=== PATIENT | male | born 1930 | race Hispanic/Latino ===

== ENCOUNTER 2018-02-07 07:26 | Observation (INO) | payer MEDICARE ==
--- NOTE | 2018-02-05 11:14 | Diagnostic Imaging Report ---
PROCEDURE: Frontal and lateral views of the chest. COMPARISON: None. INDICATIONS: PRE-OPERATIVE CHEST X-RAY FOR RETROGRADE PYELOGRAM FINDINGS: Lines/tubes: None. Lungs: The lungs are well inflated. Elevated left hemidiaphragm. Left base opacification. Pleura: There is no pleural effusion or pneumothorax. Heart and mediastinum: The heart and the mediastinum are normal. Aorta is calcified and tortuous. Bones: No acute bony abnormality. Degenerative changes of the thoracic spine. IMPRESSION: Elevated left hemidiaphragm. Left base opacification, representing atelectasis and/or pneumonia. Dictated by: Sanchez Lanier M.D. on 02/05/2018 at 11:16 Electronically approved by: Sanchez Lanier M.D. on 02/05/2018 at 11:16
[~2018-02-07] VITALS: Ht 175.3 cm; Wt 76.0 kg
[~2018-02-07 07:26] MED LIST: CEFTRIAXONE SOD 1 GM VIAL ONE; IPRATROPIU0.2 MG/1 M NEB; LANTUS 3ML100 UNITS/ SQ; OMEPRAZOLE40 MG PO; PENICILLIN; PHENAZOPYRIDIN100 MG PO; PLAVIX75 MG PO; PRAVASTATIN SOD40 MG PO
--- OUTSIDE RECORDS SUMMARY | 2018-02-07 07:28 | XMS REPORT ---
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 Allergies, Adverse Reactions, Alerts This patient has no known allergies or adverse reactions. Medications This patient has no known medications. Results Test Description Test Time Test Comments Text Results Atomic Results Result Comments CHEST 2 VIEWS [place] [address] Patient Name: CELINA QUISPE MR #: [id number] : 1930 Age/Sex: 87/M Req #: [id number] Adm Physician: Ordered by: ANGELINE URIARTE MD Report #: [id number] Location: OR Room/Bed: Procedure: [id number] DX/ CHEST 2 VIEWS Exam Date: 02/05/18 Exam Time: 1012 REPORT STATUS: Signed PROCEDURE: Frontal and lateral views of the chest. COMPARISON: None. INDICATIONS: PRE-OPERATIVE CHEST X-RAY FOR RETROGRADE PYELOGRAM FINDINGS: Lines/tubes: None. Lungs: The lungs are well inflated. Elevated left hemidiaphragm. Left base opacification. Pleura: There is no pleural effusion or pneumothorax. Heart and mediastinum: The heart and the mediastinum are normal. Aorta is calcified and tortuous. Bones: No acute bony abnormality. Degenerative changes of the thoracic spine. IMPRESSION: Elevated left hemidiaphragm. Left base opacification, representing atelectasis and/or pneumonia. Dictated by: Sanchez Oden M.D. on 2017 at 11:16 Electronically approved by: Sanchez Oden M.D. on 2017 at 11:16 Dictated By: SANCHEZ ODEN MD [id number] Transcribed By: BARB on 02/05/18 1116 COPY TO: ANGELINE URIARTE MD
[2018-02-07] MEDS ORDERED: AMPICILLIN SOD 1 GM/NS 50ML 50 ML IV NR (07:30)
[2018-02-07] MEDS ORDERED: BELLADONNA/OPIUM 60 MG SUPP PR ONE (09:28)
[2018-02-07] MEDS ORDERED: IOPAMIDOL 610MG/1ML 300 MG/ML VIAL IV ONE (09:28)
[2018-02-07] MEDS ORDERED: HYDRALAZINE HCL 20 MG/ML VIAL ONE (10:48)
[2018-02-07] MEDS ORDERED: ACETAMINOPHEN 1000 MG/100 ML 100 ML IV ONE (11:14)
[2018-02-07] MEDS ORDERED: LIDOCAINE HCL 2% LOCAL INJ 5 ML SDV VIAL INJ ONE (17:10)
[2018-02-07] MEDS ORDERED: SEVOFLURANE INHAL SOLN 250 ML PEN BTL ONE (17:10)
[2018-02-07] MEDS ORDERED: ONDANSETRON HCL INJ 2 MG/ML VIAL ONE (17:10)
[2018-02-07] MEDS ORDERED: PROPOFOL IV EMULSION 10 MG/ML 20 ML VIAL ONE (17:10)
[2018-02-07] MEDS ORDERED: DEXAMETHASONE SOD PHOS INJ 4 MG/ML VIAL ONE (17:10)
[2018-02-07 17:36] VITALS: BP 147/66
[2018-02-07 17:38] VITALS: BP 147/66
[2018-02-07 19:53] LABS: CREATINE KINASE MB 2.3 ng/mL (0-5.0)
[2018-02-07 20:00] VITALS: BP 140/65
[2018-02-07] MEDS ORDERED: METOPROLOL SUCCINATE 25 MG TAB XL PO SCH (20:15)
[2018-02-07] MEDS: PHENAZOPYRIDINE HCL 100 MG TAB PO SCH (20:44)
[2018-02-07 21:00] VITALS: BP 140/65
[2018-02-07] MEDS ORDERED: PRAVASTATIN 20 MG TAB PO SCH (21:00)
[2018-02-07] MEDS ORDERED: NON-FORMULARY MEDICATION (Pravastatin Sodium 40 MG) PO SCH (21:00)
[2018-02-07] MEDS ORDERED: INSULIN DETEMIR 100 UNIT/ML PEN SQ SCH (21:00)
[2018-02-08] VITALS: BP 133/69
--- NOTE | 2018-02-08 01:03 | Consultation ---
DATE OF CONSULTATION: February 07, 2018 REFERRING PHYSICIAN: Dr. Daryn Connors CHIEF COMPLAINT: PVCs. HISTORY OF PRESENT ILLNESS: Mr. Nuno is an 87-year-old pleasant gentleman with a past medical history significant for hypertension, reported history of lung cancer, status post radiation therapy, deconditioning. Urologic procedure today by Dr. Hsu. Postoperatively, he was noted to have episodes of PVCs in a bigeminy pattern. He denies any chest pain or shortness of breath. He denies any lightheadedness presyncope or syncope currently or in the past. His telemetry has demonstrated over the following ensuing hours improvement in ectopy, most recently with normal sinus rhythm. Serial cardiac biomarkers have been drawn and negative. His echocardiogram was reviewed with normal regional wall motion preserved left ventricular systolic function. No significant valvular abnormalities. No significant LVH. Age appropriate diastolic function. REVIEW OF SYSTEMS: Twelve systems reviewed, negative except for as noted above. PAST MEDICAL HISTORY: As per HPI. ALLERGIES: NO KNOWN DRUG ALLERGIES. SOCIAL HISTORY: A former smoker. No alcohol or drugs. FAMILY HISTORY: Noncontributory. PHYSICAL EXAMINATION VITAL SIGNS: Temperature 98.4, pulse to my exam 65, respiratory rate 14, blood pressure 147/66, O2 sat 97% on room air. GENERAL: In no acute distress, alert. NECK: No JVD. CHEST: Clear to auscultation. CARDIOVASCULAR: Regular rate and rhythm. Normal S1 and S2. No S3, no S4, no murmurs, no rubs. ABDOMEN: Soft and nontender, nondistended. EXTREMITIES: No cyanosis, clubbing or edema. EKG, echo and outpatient labs reviewed as well as serial cardiac enzymes reviewed. Telemetry reviewed. ASSESSMENT 1. Bigeminy PVCs postoperatively, otherwise asymptomatic, and with improvement of ectopy over the most recent hours. 2. History of hypertension. 3. History of lung cancer, status post radiation therapy reported. 4. Status post urologic assessment by Dr. Hsu. RECOMMENDATIONS: 1. Initiate low-dose beta kala and assess for ectopy while under observation. 2. The patient states he follows up with outpatient oven dumper, Dr. Ian Rene. Have advised close followup within one to two weeks post discharge with his outpatient oven dumper. 3. Outpatient consideration for stress test and Holter monitor have been discussed with the patient as well as multiple family members who were in the room. 4. Alarm signs to proceed to ER or call 9-1-1 have also been discussed. Thank you for the opportunity for participating in the care of Mr. Marcus Nuno. Second set of enzymes negative, okay to discharge with low-dose beta kala and outpatient followup as described. Job#: [id number] GH
[2018-02-08 04:00] VITALS: BP 110/59
[2018-02-08 07:09] LABS: BASOPHILS % 0.4 % (0.0-1.0); EOSINOPHILS # (AUTO) 0.2 (0.0-0.4); EOSINOPHILS % 2.6 % (0.0-6.0); HEMATOCRIT 33.5 % (38.2-49.6); LYMPHOCYTES # (AUTO) 0.6 (1.0-3.2); LYMPHOCYTES % 6.9 % (18.0-39.1); MEAN CORPUSCULAR HGB CONC 32.8 g/dL (31-35); MEAN CORPUSCULAR VOLUME 94.4 fL (81-99); MONOCYTES # (AUTO) 0.7 (0.2-0.8); MONOCYTES % 8.4 % (4.4-11.3); NEUTROPHILS # (AUTO) 6.9 (2.1-6.9); PLATELET COUNT 235 x10e3/uL (140-360); RED BLOOD COUNT 3.55 x10e6/uL (4.3-5.7)
[2018-02-08 07:24] VITALS: BP 141/69
[2018-02-08 07:29] LABS: CREATINE KINASE 50 IU/L (30-200)
[2018-02-08 07:59] LABS: ANION GAP 13.3 mmol/L (8-16); BLOOD UREA NITROGEN 15 mg/dL (7-26); BUN/CREATININE RATIO 18 (6-25); CALCIUM 8.9 mg/dL (8.4-10.2); CARBON DIOXIDE 26 mmol/L (22-29); CHLORIDE 102 mmol/L (98-107); CREATININE, SERUM 0.85 mg/dL (0.72-1.25); EST GLOMERULAR FILTRATION RATE > 60 ML/MIN (60-); GLUCOSE 119 mg/dL (74-118); POTASSIUM 4.3 mmol/L (3.5-5.1); SODIUM 137 mmol/L (136-145)
[2018-02-08] MEDS ORDERED: TYLENOL WITH C1 EACH PO (08:11)
[2018-02-08] MEDS ORDERED: PYRIDIUM100 MG PO (08:13)
[2018-02-08] MEDS: PHENAZOPYRIDINE HCL 100 MG TAB PO SCH (08:20)
[2018-02-08] MEDS ORDERED: PANTOPRAZOLE SOD 40 MG TABEC PO SCH (09:00)
--- NOTE | 2018-02-08 12:36 | Discharge Summary ---
VETERINARY RADIOLOGIST: Dr. Barber and Dr. Charles Hsu. FINAL DIAGNOSES 1. Status post transurethral cystoscopy with removal of urinary bladder tumor. 2. Urinary bladder cancer. SUMMARY: Patient is an 87-year-old male status post urological procedure done by Dr. Charles Hsu. The patient had urinary bladder tumor removal. The patient is stable at this time. He will go home with a Hinds catheter. The patient is otherwise stable. No complication. He did have some SVT but otherwise unremarkable. Dr. Barber has cleared the patient for discharge. 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 Jamil as an outpatient. Patient discharged home today. Resume home medications. Job#: [id number] RASHIDA
--- NOTE | 2018-03-17 22:32 | Operative Report ---
DATE OF PROCEDURE: February 07, 2018 PREOPERATIVE DIAGNOSES 1. 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 2. Urinary tract infections. 3. Urethral stricture disease. POSTOPERATIVE DIAGNOSES 1. 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 2. Urinary tract infections. 3. Urethral stricture disease. OPERATIONS PERFORMED 1. Cystourethroscopy with calibration and dilation of urethral strictures (separate procedure performed for diagnosis of strictures). 2. Cystourethroscopy with left ureteral catheterization and retrograde ureteropyelography (separate procedure performed to evaluate the upper tracts in light of the urinary tract infections). 3. Interpretation of retrograde ureteropyelography. 4. Cystourethroscopy with transurethral resection and vaporization of bladder tumors from the bladder neck and prostate bed measuring over 2.5 cm in size. ANESTHESIA: General. COMPLICATION: None. CLINICAL SUMMARY: Marcus Nuno is an 87-year-old man with the complex urological history. He has undergone a right nephroureterectomy for transitional cell carcinoma. He has had recurrent bladder cancers. He has also had transurethral resection of prostate and also has prostate cancer. He has had recurrent difficulty to treat urethral stricture disease. He has recurrent cancer and is brought for resection. He is aware of the risks of bleeding, infection, injury to adjacent structures, need for additional procedures, and elected to proceed. OPERATIVE PROCEDURE IN DETAIL: Informed consent was verified. Marcus Nuno was properly identified, taken to operating room, placed on the cystoscopy table in supine position. Anesthesia was uneventfully begun. The 22.5-Bulgarian cystoscope sheath with visual obturator in place was atraumatically inserted in patient's distal urethra. Just proximal to the fossa navicularis, there started to be the appearance of steinberg urethral stricture disease. Guidewire was then placed and then we proceeded with dilating across these strictures. As we dilated across the steinberg urethral strictures, we did not visualize any recurrent urethral urothelial cancer. We passed the sphincteric region into the prostate bed, where there was a recurrent bladder cancer that was noted in the left side of the proximal prostatic urethra and also in the bladder neck. Panendoscopy of the bladder revealed no additional tumors. Normally positioned and configured left ureteral orifice was identified. The right ureteral orifice was resected with prior nephroureterectomy. A ureteral catheter was used to cannulate the left ureter and retrograde ureteropyelography was performed. Interpretation of retrograde ureteropyelography: Contrast was instilled in retrograde fashion in left hand side. There was some J-hooking noted. There was some ureteral stricturing noted. There is no hydronephrosis. No obstruction. No filling defects. Unobstructed drainage was observed fluoroscopically. We utilized the cold-cup biopsy forceps to progressively resect all visible bladder cancer. We then utilized a Bugbee electrode to fulgurate. No additional remaining cancer could be visualized. The cystoscope was withdrawn. The Hinds catheter was placed. It was irrigated to and fro and it sure worked properly. Belladonna and opium suppository was placed and the patient was uneventfully reversed from anesthesia and taken to recovery room in stable condition. There were no complications of the procedure. He tolerated the procedure well. Will proceed with ongoing urological followup and careful surveillance. Job#: [id number] CQ
== END 2018-02-08 08:53 | disposition home or self-care (01) ==
LOC: OR 07:26 → IMCU 16:49
PROVIDERS: ADMIT Internal Medicine; ATTEND Internal Medicine
DX: C67.5 Malignant neoplasm of bladder neck (principal); C61 Malignant neoplasm of prostate; I10 Essential (primary) hypertension; I97.89 Other postprocedural complications and disorders of the circulatory system, not elsewhere classified; I49.3 Ventricular premature depolarization; Z85.118 Personal history of other malignant neoplasm of bronchus and lung; Z79.4 Long term (current) use of insulin; E78.5 Hyperlipidemia, unspecified; R31.9 Hematuria, unspecified; Z87.440 Personal history of urinary (tract) infections; E11.9 Type 2 diabetes mellitus without complications
CPT/HCPCS: 36415 ×2; 52500; 52648; 71046; 74420; 80048; 82550 ×2; 82553 ×2; 82948 ×2; 84484 ×2; 85025; 87086; 87186; 88307; 93005; 93306; C1758; G0378 ×2; J0290; J0360; J0696; J1100; J2001; J2405; Q9967; S0164; 88305

== ENCOUNTER → 2018-06-01 | Day surgery (SDC) | payer MEDICARE ==
[2018-05-30 15:29] LABS: BASOPHILS % 0.5 % (0.0-1.0); EOSINOPHILS # (AUTO) 0.3 (0.0-0.4); EOSINOPHILS % 3.8 % (0.0-6.0); HEMOGLOBIN 11.9 g/dL (14.0-18.0); LYMPHOCYTES # (AUTO) 1.4 (1.0-3.2); LYMPHOCYTES % 17.6 % (18.0-39.1); MEAN CORPUSCULAR HEMOGLOBIN 30.7 pg (28-32); MEAN CORPUSCULAR HGB CONC 32.2 g/dL (31-35); MEAN CORPUSCULAR VOLUME 95.6 fL (81-99); MONOCYTES # (AUTO) 0.9 (0.2-0.8); NEUTROPHILS % 65.7 % (38.7-80.0); PLATELET COUNT 220 x10e3/uL (140-360); RED BLOOD COUNT 3.87 x10e6/uL (4.3-5.7)
[2018-05-30 15:45] LABS: ANION GAP 12.4 mmol/L (8-16); BLOOD UREA NITROGEN 18 mg/dL (7-26); BUN/CREATININE RATIO 17 (6-25); CALCIUM 9.2 mg/dL (8.4-10.2); CARBON DIOXIDE 27 mmol/L (22-29); CHLORIDE 98 mmol/L (98-107); CREATININE, SERUM 1.06 mg/dL (0.72-1.25); EST GLOMERULAR FILTRATION RATE > 60 ML/MIN (60-); GLUCOSE 101 mg/dL (74-118); POTASSIUM 4.4 mmol/L (3.5-5.1); SODIUM 133 mmol/L (136-145)
[~2018-06-01] MED LIST changes: -CEFTRIAXONE SOD 1 GM VIAL ONE; +COMBIVENT RESPIM4 GM; +EPHEDRINE SULFATE INJ 50 MG/10 ML SYR ONE; +FENTANYL CITRATE/PF 100MCG/2 ML INJ ONE; +FLUTICASONE PO; +HYDRALAZINE HCL 20 MG/ML VIAL ONE; +IOPAMIDOL 300MG/ML 50ML INFUS..BTL IV ONE; +LIDOCAINE HCL 2% LOCAL INJ 5 ML SDV VIAL INJ ONE; +METOPROLOL TART25 MG PO; +ONDANSETRON HCL INJ 2 MG/ML VIAL ONE; +PROPOFOL IV EMULSION 10 MG/ML 20 ML VIAL ONE; +PYRIDIUM100 MG PO; +RANITIDINE HCL300 M1 PO; +SEVOFLURANE INHAL SOLN 250 ML PEN BTL ONE; +TYLENOL WITH C1 EACH PO; +VANCOMYCIN 1GM/NS 250 ML 250 ML ONE
--- NOTE | 2018-06-01 15:02 | Diagnostic Imaging Report ---
Retrograde urography CPT code: 62550 History: Recurrent bladder cancer Comparison: None Technique: Fluoroscopic guidance was provided to Dr. Charles Hsu for the purposes of a retrograde urogram. RADIATION DOSE: Fluoroscopy Time: 00:10 seconds Dose (Kerma) Area Product: 112.28 cGycm2 Air Kerma (AK) value (6.91 mGy) has been reviewed. It is below the limits set by the Radiation Protocol Committee (RPC) committee. Findings: Contrast is injected into the left ureter. There is no evidence of hydronephrosis or intraluminal filling defect. No strictures. Contrast fills the left renal collecting system. There is no dilatation. The calyces are mildly blunted. This may be due to underdistention. IMPRESSION: Mild blunting of the left renal calyces may be from underdistention of the collecting system. Please correlate with findings at time of exam. Signed by: Dr. Kirk Ashraf MD on 06/01/2018 2:58 PM
[2018-06-01 16:45] VITALS: BP 169/85
--- OUTSIDE RECORDS SUMMARY | 2018-06-21 08:04 | XMS REPORT | Continuity of Care Document ---
Author Author [facility] Organization [facility] Address [address] [place] [address] Phone Unavailable Care Team Providers Care Microarray Operations Vice President Name Role Phone NONSTAFF PCP Unavailable Insurance Providers Guarantor Marcus Nuno Address [address] [place] [address] Email [email or web address] Payer [facility] Policy Number [id number] Subscriber's Name Marcus Nuno Relationship 18 Self / Same As Patient Group Name RETIRED Effective Date 17 Payer Medicare A & B Policy Number [id number] Subscriber's Name Marcus Nuno Relationship 18 Self / Same As Patient Group Name RETIRED Advance Directives Directive Response Recorded Date/Time Does the patient have an advance directive? No 02/07/18 5:47pm If yes, is advance directive on file with [facility]? No 12/11/09 11:39am If not on file with [facility] will patient provide a copy? No 09/29/11 10:24am Do you have a Directive to Physician? No 02/05/18 9:13am Do you have a Medical Power of Dairy Worker? No 02/05/18 9:13am Do you have an out of hospital Do Not Resuscitate Order? No 02/05/18 9:13am Do you have any special needs we should be aware of? No 02/05/18 9:13am Do you have a support person here with you today? Yes 02/05/18 9:17am Did patient receive Notice of Privacy Practices? Yes 02/05/18 9:13am Did patient receive patient rights and responsibilities? Yes 02/05/18 9:13am Problems No problem information available. Medications Current Home Medications Medication Dose Units Route Directions Days Qty Instructions Start Date Acetaminophen With Codeine (Tylenol With Codeine #3 Tablet) 1 Each Tablet 300 Mg Oral Every 4 Hours as needed for Pain Clopidogrel Bisulfate (Plavix) 75 Mg Tablet 75 Mg Oral Daily 30 Tab Insulin Glargine (Lantus 3ML Pen) 100 Units/1 Ml Inj 15 Units Sub-Q Bedtime Ipratropium [place] 0.2 Mg/1 Ml Solution 0.06 % Nebullizer Omeprazole 40 Mg Capsule.dr 20 Mg Oral Daily Penicillin 500 Mg Phenazopyridine Hcl 100 Mg Tablet 200 Mg Oral Three Times A Day Phenazopyridine Hcl (Pyridium) 100 Mg Tablet 200 Mg Oral Three Times A Day Pravastatin Sodium 40 Mg Tablet 40 Mg Oral Bedtime Social History Social History Problem Response Recorded Date/Time Onset Date Status Hx Psychiatric Problems No 02/07/2018 5:47pm Not Applicable Not Applicable Hx Eating Disorder No 02/07/2018 5:47pm Not Applicable Not Applicable Hx Substance Use Disorder No 02/07/2018 5:47pm Not Applicable Not Applicable Hx Depression No 02/07/2018 5:47pm Not Applicable Not Applicable Hx Alcohol Use No 02/07/2018 5:47pm Not Applicable Not Applicable Hx Substance Use Treatment No 02/07/2018 5:47pm Not Applicable Not Applicable Hx Physical Abuse No 02/07/2018 5:47pm Not Applicable Not Applicable Smoking Status Start Date Stop Date Former smoker Hospital Discharge Instructions No hospital discharge instruction information available. Plan of Care Discharge Date 02/08/18 8:53am Disposition HOME, SELF-CARE Instructions/Education Provided Rodriguez Catheter Care Prescriptions See Medication Section Additional Instructions/Education f/u with Dr. Hsu in 2 weeks to remove rodriguez Functional Status Query Response Date Recorded Ambulation Ability Independent February 07, 2018 5:38pm Toileting Ability Independent February 07, 2018 5:38pm Allergies, Adverse Reactions, Alerts No known allergies. Immunizations No immunization information available. Vital Signs Acute Vital Signs Vital Response Date/Time Temperature (Fahrenheit) 98.6 degrees F (97.6 - 99.5) 02/08/2018 7:24am Pulse Pulse Rate (adult) 61 bpm (60 - 90) 02/08/2018 7:24am Respiratory Rate 20 bpm (12 - 24) 02/08/2018 7:24am Blood Pressure 141/69 mm Hg 02/08/2018 7:24am Height 5 ft 9 in 02/07/2018 5:36pm Weight 167.50 lb 02/08/2018 12:50am Body Mass Index 24.7 kg/m^2 02/08/2018 12:50am Results Laboratory Results Test Name Result Units Flags Reference Collection Date/Time Result Date/ Time Comments White Blood Count 8.45 x10e3/uL 4.8-10.8 02/08/2018 6:0502/08/2018 7 :10am Red Blood Count 3.55 x10e6/uL L 4.3-5.7 02/08/2018 6:0502/08/2018 7: 10am Hemoglobin 11.0 g/dL L 14.0-18.0 02/08/2018 6:0502/08/2018 7:10am Hematocrit 33.5 % L 38.2-49.6 02/08/2018 6:0502/08/2018 7:10am Mean Corpuscular Volume 94.4 fL 81-99 02/08/2018 6:0502/08/2018 7: 10am Mean Corpuscular Hemoglobin 31.0 pg 28-32 02/08/2018 6:0502/08/2018 7:10am Mean Corpuscular Hemoglobin Concent 32.8 g/dL 31-35 02/08/2018 6:0502/08/2018 7:10am Red Cell Distribution Width 13.0 % 11.7-14.4 02/08/2018 6:052017 7:10am Platelet Count 235 x10e3/uL 140-360 02/08/2018 6:0502/08/2018 7: 10am Neutrophils (%) (Auto) 81.0 % H 38.7-80.0 02/08/2018 6:0502/08/2018 7 :10am Lymphocytes (%) (Auto) 6.9 % L 18.0-39.1 02/08/2018 6:0502/08/2018 7: 10am Monocytes (%) (Auto) 8.4 % 4.4-11.3 02/08/2018 6:0502/08/2018 7: 10am Eosinophils (%) (Auto) 2.6 % 0.0-6.0 02/08/2018 6:0502/08/2018 7: 10am Basophils (%) (Auto) 0.4 % 0.0-1.0 02/08/2018 6:0502/08/2018 7:10am IM GRANULOCYTES % 0.7 % 0.0-1.0 02/08/2018 6:0502/08/2018 7:10am Neutrophils # (Auto) 6.9 2.1-6.9 02/08/2018 6:0502/08/2018 7:10am Lymphocytes # (Auto) 0.6 L 1.0-3.2 02/08/2018 6:0502/08/2018 7: 10am Monocytes # (Auto) 0.7 0.2-0.8 02/08/2018 6:0502/08/2018 7:10am Eosinophils # (Auto) 0.2 0.0-0.4 02/08/2018 6:0502/08/2018 7:10am Basophils # (Auto) 0.0 0.0-0.1 02/08/2018 6:0502/08/2018 7:10am Absolute Immature Granulocyte (auto 0.06 x10e3/uL 0-0.1 02/08/2018 6: 0502/08/2018 7:10am Sodium Level 137 mmol/L 136-145 02/08/2018 6:0502/08/2018 8:00am Potassium Level 4.3 mmol/L 3.5-5.1 02/08/2018 6:0502/08/2018 8:00am Chloride Level 102 mmol/L 98-107 02/08/2018 6:0502/08/2018 8:00am Carbon Dioxide Level 26 mmol/L -02/08/2018 6:0502/08/2018 8: 00am Anion Gap 13.3 mmol/L 8-02/08/2018 6:0502/08/2018 8:00am Blood Urea Nitrogen 15 mg/dL 04-1202/08/2018 6:05am 02/08/2018 8:00am Creatinine 0.85 mg/dL 0.72-1.25 02/08/2018 6:05am 02/08/2018 8:00am BUN/Creatinine Ratio 18 6-25 02/08/2018 6:05am 02/08/2018 8:00am Estimat Glomerular Filtration Rate > 60 ML/MIN 60- 02/08/2018 6:05am 8:00am Ranges were taken from the National Kidney Disease Education Program and the National Kidney Foundation literature. Reference ranges: 60 or greater: Normal 16-59 (for 3 consecutive months): Chronic kidney disease 15 or less: Kidney failure Glucose Level 119 mg/dL H 74-118 02/08/2018 6:05am 02/08/2018 8:00am Calcium Level 8.9 mg/dL 8.4-10.2 02/08/2018 6:05am 02/08/2018 8:00am Bedside Glucose 117 mg/dL 70-120 02/08/2018 6:56am 02/08/2018 7:19am Meter ID: [id number] Creatine Kinase 50 IU/L 30-200 02/08/2018 6:05am 02/08/2018 7:29am Creatine Kinase MB 1.40 ng/mL 0-5.0 02/08/2018 6:05am 02/08/2018 7: 40am Troponin I < 0.001 ng/mL 0-0.300 02/08/2018 6:05am 02/08/2018 7:40am Procedures Procedure Status Date Provider(s) Transurethral resection of bladder tumor (TURBT) with cystoscopy Completed ANGELINE HSU MD X-ray of chest, two views Active 02/05/18 ANGELINE HSU MD Encounters Encounter Location Arrival/Admit Date Discharge/Depart Date Attending Provider Discharged Inpatient (obs) [facility] 02/07/18 4:49pm 8:53am CHIP SOTO MD
--- NOTE | 2018-07-30 01:34 | Operative Report ---
DATE OF PROCEDURE: June 01, 2018 PREOPERATIVE DIAGNOSES: 1. Urethral stricture disease. 2. Recurrent bladder cancer throughout the prostate bed as well as bladder neck region encompassing well over 5 cm maximal diameter of recurrent bladder cancer. 3. Chronic renal insufficiency. POSTOPERATIVE DIAGNOSES: 1. Urethral stricture disease. 2. Recurrent bladder cancer throughout the prostate bed as well as bladder neck region encompassing well over 5 cm maximal diameter of recurrent bladder cancer. 3. Chronic renal insufficiency. OPERATIONS PERFORMED: 1. Cystourethroscopy with calibration and dilation of urethral stricture disease (separate procedure performed for diagnosis of stricture). 2. Cystourethroscopy with left ureteral catheterization and retrograde ureteropyelography (separate procedure performed to evaluate the upper tract of the patient's solitary kidney in light of the renal insufficiency). 3. Interpretation of retrograde ureteropyelography. 4. Cystourethroscopy with transurethral treatment of large bladder tumor (separate procedure performed for diagnosis of the tumor). ANESTHESIA: General. COMPLICATIONS: None. 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 The patient previously has had a right nephroureterectomy for transitional cell carcinoma. He eventually changed urologist and has been under my care for quite sometime. He has had transitional cell carcinoma of his urethra as well as of his bladder on numerous occasions. The patient has had multiple courses of BCG. He has metastatic disease that has been treated as well. The patient is brought to the operating room to resolve and treat recurrent transitional cell carcinoma from his lower urinary tract. We understand that we will not be curing this patient bladder cancer, however, doing our best to palliate his condition and avoid him episodes of hematuria, discomfort, and urinary retention. He is aware of the risks of bleeding, infection, injury to adjacent structures, the non-curative nature of today's procedures, and he elected to proceed. OPERATIVE PROCEDURE IN DETAIL: Informed consent was verified. Marcus Nuno was properly identified, taken to operating room, and placed on the cystoscopy table in supine position. Anesthesia was uneventfully begun. The patient was then carefully and gently repositioned in the dorsal lithotomy position with all pressure points well padded. His genitalia were prepared and draped in usual sterile fashion. The 22.5-Telugu cystoscope sheath with the visual obturator in place was atraumatically inserted into the patient's urethra. Most of the urethra was severely blanched from chronic stricture disease. We dilated across the strictures utilizing the visual obturator and the cystoscope sheath. We were able to negotiate the cystoscope to the sphincteric region, which was normal, and through the prostate bed, which exhibited recurrent transitional cell carcinoma diffusely. Panendoscopy of the urinary bladder revealed numerous scars from prior tumor treatments. An 8-Telugu catheter was used to cannulate the left ureter, and retrograde ureteral pyelograms were performed. Interpretation of retrograde ureteropyelography: Contrast was instilled in retrograde fashion bilaterally. There was no true hydronephrosis. The calices were and were sharp. The patient has a capacious renal pelvis. Unobstructed drainage was observed fluoroscopically. There were no suspicious lesions in the upper tract. Bugbee electrode was then utilized to vaporize on the cutting current and coagulate on the coagulation current all visible tumor from the prostate bed and bladder neck region. This resulted in complete ablation of all tumor that is visible as well as excellent hemostasis. The cystoscope was withdrawn. A Hinds catheter was placed. It was irrigated to and fro to ensure it worked properly, and the patient was uneventfully reversed from anesthesia and taken to recovery room in stable condition. Explicit postoperative instructions were given. Will follow the patient up in the office. Job#: [id number]
== END | disposition home or self-care (01) ==
LOC: OR 11:45
PROVIDERS: ATTEND Urology
DX: C67.9 Malignant neoplasm of bladder, unspecified (principal); C68.0 Malignant neoplasm of urethra; C34.91 Malignant neoplasm of unspecified part of right bronchus or lung; N35.9 Urethral stricture, unspecified; E11.22 Type 2 diabetes mellitus with diabetic chronic kidney disease; I12.9 Hypertensive chronic kidney disease with stage 1 through stage 4 chronic kidney disease, or unspecified chronic kidney disease; N18.9 Chronic kidney disease, unspecified; Z90.5 Acquired absence of kidney; J44.9 Chronic obstructive pulmonary disease, unspecified; E78.5 Hyperlipidemia, unspecified; I25.10 Atherosclerotic heart disease of native coronary artery without angina pectoris; Z01.810 Encounter for preprocedural cardiovascular examination; Z01.812 Encounter for preprocedural laboratory examination; Z79.4 Long term (current) use of insulin; Z86.73 Personal history of transient ischemic attack (TIA), and cerebral infarction without residual deficits; Z85.820 Personal history of malignant melanoma of skin; Z92.3 Personal history of irradiation
CPT/HCPCS: 36415 ×2; 52005; 52240; 74420; 80048; 82948; 85025; 93005; C1758; J0360; J2001; J2405; J3370; Q9967

== ENCOUNTER → 2018-09-01 | Day surgery (SDC) | payer MEDICARE ==
[2018-08-30 14:34] LABS: BASOPHILS % 0.3 % (0.0-1.0); EOSINOPHILS # (AUTO) 0.3 (0.0-0.4); EOSINOPHILS % 2.9 % (0.0-6.0); HEMATOCRIT 36.1 % (38.2-49.6); HEMOGLOBIN 11.5 g/dL (14.0-18.0); LYMPHOCYTES # (AUTO) 1.6 (1.0-3.2); LYMPHOCYTES % 18.4 % (18.0-39.1); MEAN CORPUSCULAR HEMOGLOBIN 31.3 pg (28-32); MEAN CORPUSCULAR HGB CONC 31.9 g/dL (31-35); MEAN CORPUSCULAR VOLUME 98.1 fL (81-99); MONOCYTES # (AUTO) 0.9 (0.2-0.8); MONOCYTES % 10.8 % (4.4-11.3); NEUTROPHILS # (AUTO) 5.8 (2.1-6.9); NEUTROPHILS % 67.1 % (38.7-80.0); PLATELET COUNT 312 x10e3/uL (140-360); RED BLOOD COUNT 3.68 x10e6/uL (4.3-5.7); RED CELL DISTRIBUTION WIDTH 12.9 % (11.7-14.4)
[2018-08-30 14:51] LABS: ALBUMIN 3.4 g/dL (3.5-5.0); ALBUMIN/GLOBULIN RATIO 0.7 (0.8-2.0); ANION GAP 15.2 mmol/L (8-16); CALCIUM 9.4 mg/dL (8.4-10.2); CREATININE, SERUM 1.25 mg/dL (0.72-1.25); POTASSIUM 4.2 mmol/L (3.5-5.1)
[~2018-09-01] MED LIST changes: +BELLADONNA/OPIUM 60 MG SUPP PR ONE; +CEFTRIAXONE SOD 1 GM/NS 50 ML 50 ML IV ONE; -HYDRALAZINE HCL 20 MG/ML VIAL ONE; -IOPAMIDOL 300MG/ML 50ML INFUS..BTL IV ONE; +IOPAMIDOL 610MG/1ML 300 MG/ML VIAL IV ONE; +MORPHINE SULFATE INJ 4 MG/ML INJ ONE; -VANCOMYCIN 1GM/NS 250 ML 250 ML ONE
[2018-09-01 09:05] VITALS: BP 150/78
--- NOTE | 2018-09-01 19:00 | Operative Report ---
DATE OF PROCEDURE: September 01, 2018 PREOPERATIVE DIAGNOSIS: Recurrent bladder cancer. POSTOPERATIVE DIAGNOSES 1. Recurrent bladder cancer. 2. Severe recurrent urethral stricture disease. 3. Gross hematuria. 4. Chronic renal insufficiency. PROCEDURES PERFORMED 1. Cystourethroscopy with calibration and dilation of dense midurethral stricture (separately performed for diagnosis of stricture). 2. Cystourethroscopy with transurethral treatment and ablation of recurrent bladder cancer, medium-sized, over an area of greater than 2.5 cm (separately performed for bladder cancer). 3. Cystourethroscopy with bilateral ureteral catheterization and retrograde ureteropyelography (separate procedure performed for the renal insufficiency and gross hematuria). 4. Interpretation of retrograde ureteropyelography, no radiologist present. ANESTHESIA: General. COMPLICATIONS: None. CLINICAL SUMMARY: Mr. Marcus Nuno is an 87-year-old man with a very complicated urological history. 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 Patient also has had bladder cancer that has been recurrent. The patient has undertaken BCG immunotherapy and has failed it. Patient has BPH and is status post transurethral resection of the prostate. He has prostate cancer and is status post radiation. Patient's bladder cancer has since metastasized and he has undergone palliative therapies. Nevertheless, a surveillance cystoscopy revealed recurrent bladder cancer, which will eventually obstruct bladder and therefore, he is brought the operating room for the procedures above. He is aware the risks of bleeding infection, injury to adjacent structures, need for additional procedures. He also understands the greatly increased risk of anesthesia due to his advanced age and multiple medical problems. He understood all these risks and elected to proceed. OPERATIVE PROCEDURE IN DETAIL: Informed consent was verified. Marcus Nuno was properly identified, taken to operating room, placed on the cystoscopy table in supine position. Anesthesia was uneventfully begun. The patient was then carefully and gently repositioned in the dorsal lithotomy position with all pressure points well padded. His genitalia were prepared and draped in usual sterile fashion. A 21-Mauritian cystourethroscope sheath with the visual obturator with blade was atraumatically inserted into patient's distal urethra. It was then guided down the urethra till the mid urethra where there was a dense stricture. We gently dilated across this stricture utilizing the cystoscope sheath with a visual obturator and placed this, calibrating it to 21. We then passed through the otherwise unremarkable urethra and through intersphincteric region into the prostate bed where there was recurrent transitional cell carcinoma noted. This cancer seems to have the potential to obstruct the patient's bladder outlet. The bladder neck itself was wide open. Panendoscopy of the urinary bladder revealed diffuse blanching from prior to radiotherapy. No suspicious mucosal lesions. The left ureteral orifice was identified in its normal position and was effluxing clear urine. An 8-Mauritian catheter was used to cannulate the left ureter and retrograde ureteropyelograms were performed. Interpretation of retrograde ureteropyelography: Contrast was instilled in retrograde fashion on the left hand side. There were no tumors, no stones, and no diverticula. Unobstructed drainage was observed fluoroscopically. There was hydroureteronephrosis, but unobstructed drainage of the contrast could be seen. No suspicious lesions within the upper tract were identified. The Bugbee electrode was utilized to vaporize all visible bladder cancer. The tissues were not well vascularized being status post radiotherapy and there was no significant bleeding. Once all visible tumor was gone, the cystoscope was withdrawn and a 22-Mauritian Hinds catheter was placed, and 30 mL were placed in the 30 mL balloon. The catheter was irrigated to and fro to ensure it worked properly and the patient was uneventfully reversed from anesthesia and taken to recovery room in stable condition. There were no complications during the procedure. He tolerated the procedure well. Explicit postoperative instructions were given and we will follow the patient up in the office in approximately 1 month, at which point in time, we will proceed with bladder ultrasonography. Job#: [id number] HARPAL
== END | disposition home or self-care (01) ==
LOC: OR 06:14
PROVIDERS: ATTEND Urology
DX: C67.9 Malignant neoplasm of bladder, unspecified (principal); K21.9 Gastro-esophageal reflux disease without esophagitis; Z79.4 Long term (current) use of insulin; E11.22 Type 2 diabetes mellitus with diabetic chronic kidney disease; I12.9 Hypertensive chronic kidney disease with stage 1 through stage 4 chronic kidney disease, or unspecified chronic kidney disease; N18.9 Chronic kidney disease, unspecified
CPT/HCPCS: 36415 ×2; 52235; 74420; 80053; 82948; 85025; C1758; J0696; J2001; J2270; J2405; J2704; Q9967